=== PATIENT | male | born 1975 | race Caucasian/White ===

== ENCOUNTER 2024-04-14 07:23 | Day surgery (SDC) | payer SELFPAY ==
[2024-04-14] VITALS (9 sets, daily range): BP systolic 107–121; BP diastolic 66–82; PULSE 58–72; RESP 14–18; TEMP 36.2–36.7; O2SAT 94–99; BMI 25.7
--- NOTE | 2024-04-14 07:30 | EKG12_ITS ---
Test Reason : PREOP Blood Pressure : */* mmHG Vent. Rate : 67 BPM Atrial Rate : 67 BPM P-R Int : 144 ms QRS Dur : 92 ms QT Int : 378 ms P-R-T Axes : 24 27 44 degrees QTcB Int : 399 ms Normal sinus rhythm Normal ECG No previous ECGs available Confirmed by HEYDI KATE, MAL ([id number]), society editor MECCA BANKS ([id number]) on 04/16/2024 9:59:20 AM Referred By: Karl Burton Confirmed By: MAL SOLIZ MD
[2024-04-14] MEDS: 0.9% Normal Saline (1000mL) 1,000 ML 15 ML IV (08:00)
--- NOTE | 2024-04-14 08:31 | PCM.PRE.AN2 ---
ASA Classification* ASA Classification ASA Classification: 2 Assessment & Plan Anesthesia* Anesthesia Assessment Anesthesia Assessment: Discussed sedation and/or anesthesia options, risks, benefits, and alternatives with patient/parents/legal guardian/POA. Questions invited. The patient/parents/legal guardian/POA seems to understand and agrees to proceed with anesthesia plan. Reviewed the physical assessment, medical history, allergy history and patient home medications list prior to surgery/procedure/anesthetic and documented any changes. Performed airway and anesthesia risk assessments. 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 When Was Last Pacemaker Check QUESTION #4 FULL TEXT: You/Your Family Experience fever (hyperthermia) with Anesthesia Last Oral Intake Last Oral intake: Last Oral Intake NPO since 18:00 04/14/24 08:00 Meds taken in AM with sips of No 04/14/24 08:00 water? Meds patient instructed to take am of surgery PONV PONV - assistant to the vice president: PONV - assistant to the vice president Female No 04/07/24 11:19 HX of Motion Sickness No 04/07/24 11:19 HX of N/V After Surgery No 04/07/24 11:19 Non-Smoker Yes 04/07/24 11:19 Duration of Surgery greater Yes 04/07/24 11:19 than 60 minutes Number of Risk Factors 2 04/07/24 11:19 PONV Score Moderate Risk 04/07/24 11:19 Height & Weight Height & Weight: Anesthesia: Height & Weight Height 5 ft 9 in 04/14/24 08:00 Weight: 79 kg 04/14/24 08:00 Body Mass Index (BMI) 25.7 04/14/24 08:00 Respiratory Assessment Respiratory Assessment - assistant to the vice president: Respiratory Tract Infection Hx - assistant to the vice president Hx Respiratory Tract Infection No 04/07/24 11:19 STOP Sleep Apnea STOP Sleep Apnea - assistant to the vice president: STOP Sleep Apnea - assistant to the vice president Hx Hypertension No 04/07/24 11:19 Hx Sleep Apnea No 04/07/24 11:19 CPAP BIPAP Do you snore loudly (louder No 04/07/24 11:19 than talking or can be heard Do you often feel tired/ No 04/07/24 11:19 fatigued/ sleepy during daytime? Has anyone observed you stop No 04/07/24 11:19 breathing during sleep? STOP Results Negative 04/07/24 11:19 QUESTION #5 FULL TEXT : Do you snore loudly (louder than talking or can be heard through closed doors)? Tobacco Use History Tobacco Use History - assistant to the vice president: Tobacco Use History - assistant to the vice president Tobacco Use Smoking Status Former smoker 04/07/24 11:19 Hx Tobacco Use No 04/07/24 11:19 Years Smoking Packs Smoked per Day Smoking Cessation Date was Yes - quit smoking within 15 04/07/24 11:19 within the last 15 years years Hx Smoking Cessation Date Hx Smoking Cessation Counseling Hematologic Medial History Hematologic Hx - assistant to the vice president: Hematologic Medical Hx - shot man Hx of Blood Transfusion Yes 04/07/24 11:19 Hx of Transfusion in last 3 No 04/07/24 11:19 Months Date of Last Transfusion (if within last 3 months) Ever experience any problems No 04/07/24 11:19 with transfusion(s)? Specify any problems Hx of Preganancy in last 3 N/A 04/07/24 11:19 Months Nurse Filling Out Transfusion DSCHRIBER 04/07/24 11:19 & Questions: Date: 04/07/24 04/07/24 11:19 Time: 11:21 04/07/24 11:19 Patient unable to answer at this time (ie. confused, unrespo /Reproduction History /Reproductive History - assistant to the vice president: /Reproductive Hx- assistant to the vice president Hx Now No 04/07/24 11:19 Gestational Age (in weeks): EDC: Hx Hx Para Hx Section SAB No 04/07/24 11:19 Active Medications Active Medications: Current Medications Generic Name Dose Route Start Last Admin Trade Name Freq PRN Reason Stop Dose Admin Cefazolin Sodium 2 gm/ N/A 20 mls @ 400 mls/hr 04/14/24 09:40 IV 04/14/24 09:42 PREOP ONE Sodium Chloride 1,000 mls @ 15 mls/hr 04/14/24 07:40 04/14/24 08:00 IV 04/19/24 20:59 15 mls/hr .Q48H ABNER Administration Protocol [facility] Medical History Anxiety Back pain Ulcerative colitis Former smoker Tachycardia Superior labrum jocfbqxk-ts-tufxymdqw (SLAP) tear of left shoulder Left rotator cuff tear Left shoulder pain Home Medications ?Medication ?Instructions ?Recorded ?Last Taken ?Type NK 02/16/24 Unknown History Allergy/AdvReac Type Severity Reaction Status Date / Time No Known Allergies Allergy Verified 04/14/24 08:09 Surgical History Hx of arthroscopic knee surgery History of colonoscopy Social History Smoking Status: Former smoker alcohol intake: never Review of Systems (Anesthesia) ROS Narrative System reviewed and no additional complaints, except as documented.
--- NOTE | 2024-04-14 09:02 | PCM.HP.STD ---
HPI - General HPI Narrative DOMITILA LINN, is a 48 M who presents for left shoulder arthroscopy subacromial decompression rotator cuff repair of the supraspinatus and subscapularis as well as biceps tenodesis. no changes to h and p. shoulder marked. rab, post op instructions and narcotic counselling discussed. ok to proceed, no further questions. MR#: [id number] Acct: [id number] Name: DOMITILA LINN Rep #: [id number] : 1975 Provider: Dr. Karl Burton MD Age/Sex: 48/M Location[place] [facility] [place] Status: Signed Intake Vital Signs 02/16/2408:08 Weight: 176 lb 8 oz Intake Visit Reasons: LEFT SHOULDER Chief Complaint: left shoulder rotator cuff tear Accompanied by: Self Is patient in pain?: No Allergies No Known Allergies Allergy (Unverified 02/16/24 08:08) Medications ?Medication ?Instructions ?Recorded ?Confirmed ?Type NK 02/16/24 02/16/24 History PFSH Medical History (Updated 02/16/24 @ 08:12 by Karl Burton MD) Superior labrum ximdorva-oo-jkeqvfsfw (SLAP) tear of left shoulder Left rotator cuff tear Left shoulder pain Surgical History (Updated 02/16/24 @ 08:11 by Fernanda Guadalupe) History of colonoscopy Social History (Updated 02/16/24 @ 08:10 by Fernanda Guadalupe) Smoking Status: Former smoker alcohol intake: never HPI LEFT SHOULDER Details: This documentation accurately reflects the service provided and the decisions made by me, Dr. Karl Burton MD 02/16/24 0804. Part of today?s visit was documented by [ ], acting as scribe. DOMITILA LINN is a 48 year old M here today for L shoulder pain, rotator cuff tear. 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 anterior shoulder pain. comes and goes. became worse over 2 months ago. lateral pain, worse with lifting and abduction. RHD. [place] - cortisone injection unsure really, but it helped about 6 months. no PT. meds - nothing. Ortho Exam General General: Yes no acute distress Neurologic: Yes alert and Yes oriented x3 Psychologic: Yes reasonable and appropriate Left Shoulder Skin/Wound: Yes CDI, No ecchymosis, No erythema and No swelling Testing: Yes Hawkin's, Yes Neer's, Yes Speed's, No TTP Biceps, Yes TTP AC Joint, Yes AROM-Forward Elevation 0-180, Yes AROM-External Rotation at side 0-60, Yes empty can, Yes Lincoln, No cross arm, No lift off, No scapular winging and Yes belly press normal SHOULDER: normal motor and sens to axillary N, MRU and AIN/PIN. Hand warm well perfused normal radial pulse strength fe 5/5, er 5/5 with pain. Supplemental Info MRI left shoulder no contrast 01/27/2024 Impression 1. Tendon full-thickness tear of distal posterior fibers of the supraspinatus tendon at the footprint superimposed on mild tendinosis. Tiny low-grade intrasubstance tear along the myotendinous junction of infraspinatus. Near full-thickness tear of distal subscapularis tendon with minimal appearing to remain intact. Tear of the anterior superior through posterior superior labrum. I independently reviewed the imaging. Concur with radiologist report. My own opinion is that the MRI is over calling the subscapularis tear Patient refused x-rays despite my insistence that this is important for full workup of the shoulder pain Coding Level of Care Code Off vis,new,level 3 Diagnoses Left shoulder pain M25.512 Left rotator cuff tear M75.102 Superior labrum nstevibz-fd-doarxwodj (SLAP) tear of left shoulder S43.432A Assessment and Plan Assessment and Plan (1) Left shoulder pain: Status: Acute Plan: 48-year-old man with a left shoulder pain subscapularis tear small supraspinatus tear as well as a tear at the superior labrum. Failed cortisone injection, does not want PT or other modalities. Explained the diagnosis prognosis different treatment options available including but not limited to rest ice anti-inflammatories active modifications cortisone injections therapy and surgery. Surgery in the form of left shoulder arthroscopy subacromial decompression rotator cuff repair of the supraspinatus and subscapularis as well as biceps tenodesis. Patient only smokes occasional cigar or otherwise a healthy patient. 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 The patient understands wished to proceed signed the consent form. Also let the patient know there would be a delay due to the national IV fluid shortage. He understands no further questions or concerns. Pros and cons risks and benefits were discussed with the patient including but not limited to infection, pain, stiffness, bleeding, damage to surrounding structures, neurovascular injury, recurrence or retear, failure or wear of hardware or fixation, instability, fracture, deep vein thrombosis and pulmonary embolism, anesthetic risks, , patient dissatisfaction, need for further surgery and other risks. Patient understood and wished to proceed with surgery, and signed the informed consent documentation. (2) Left rotator cuff tear: Status: Acute (3) Superior labrum iakrbrju-vg-lhlfgykpy (SLAP) tear of left shoulder: Status: Acute Orders: Orders Shoulder min 2 Views Today M25.512 - Pain in left shoulder, M75.102 - Unspecified rotator cuff tear or rupture of left shoulder, not specified as traumatic, S43.432A - Superior glenoid labrum lesion of left shoulder, initial encounter [facility] Medical History Anxiety Back pain Ulcerative colitis Former smoker Tachycardia Superior labrum najemhaq-yu-zoxiutxbk (SLAP) tear of left shoulder Left rotator cuff tear Left shoulder pain Home Medications ?Medication ?Instructions ?Recorded ?Last Taken ?Type NK 02/16/24 Unknown History Allergy/AdvReac Type Severity Reaction Status Date / Time No Known Allergies Allergy Verified 04/14/24 08:09 Surgical History Hx of arthroscopic knee surgery History of colonoscopy Social History Smoking Status: Former smoker alcohol intake: never Vital Signs Vital Signs Vital Signs: 04/14/24 08:00 04/14/24 08:00 04/14/24 08:31 Temperature 98.1 F 98.1 F Temperature Source Temporal Pulse Rate 58 L 58 L Respiratory Rate 18 18 Respiratory Pattern Normal Blood Pressure 121/75 H 121/75 H Blood Pressure Mean 90 Blood Pressure Source Monitor Blood Pressure Position Sitting Blood Pressure Location Left Arm Pulse Ox 99 99 Oxygen Delivery Method Room Air Weight Weight: 174 lb 2.643 oz Body Mass Index (BMI) 25.7
[2024-04-14] MEDS: Cefazolin 2 GM in Syringe IV (09:32)
--- NOTE | 2024-04-14 11:37 | EX.PCM.DISCH ---
Discharge Instructions Diet Discharge Diet: No restrictions Activity Ice area for (Minutes): 10 Lifting Restrictions: no lifting, pendulums 4x/day Dressing / Incision Call your doctor if your incision/area has: Continuous Slow Oozing, Sudden Increased Bleeding, Increased Pain/ Swelling, Increased Redness, Foul Smelling Discharge and Swelling at the incision site Call your doctor if you observe: Fever of 101 or Higher, Coldness, Increased Pain and Numbness or Tingling Change Dressing in: leave in place till F/U Remove Dressing in: do not remove dressing Cleanse incision/area with: Do not get Incision Wet Follow Up Care Please Follow Up With: Karl Burton MD When: next week Test Results: Test results from this visit will be discussed in further detail at your follow-up appointment, if applicable. Discharge Plan Admission Attending Provider: Karl Burton Primary Care Provider: Mich Liang Instructions Print Language: Surinamese Discharge Orders/Prescriptions Prescriptions: New oxycodone-acetaminophen [Endocet] 5-325 mg tablet 1 tab PO Q4H MDD 6 PRN (Reason: pain) 5 Days Qty: 30 0RF Referrals / Follow Up: Karl Burton MD [Med Staff - Active Staff] - Disposition Disposition (needs filled in before D/C Order can be placed): Home, Self Care
--- NOTE | 2024-04-14 12:32 | PCM.OPRPT ---
Problems Associated Problem List Diagnoses (1) Superior labrum shrucnug-sg-flnioxlqi (SLAP) tear of left shoulder: (2) Left rotator cuff tear: (3) Left shoulder pain: Procedures Musculoskeletal [id number]: Other Procedure See Report Operative Report (Standard) Operative Information Date of Procedure: 04/14/24 Pre-Operative Diagnosis: Left shoulder rotator cuff tear subscapularis tear and SLAP tear Post-Operative Diagnosis: Same Surgery/Procedure Performed: Left shoulder arthroscopy subacromial decompression rotator cuff repair of supraspinatus and subscapularis as well as biceps tenodesis tune up mechanic: Yes Worm Packer: dajuan Tasks completed by administrative assistant data entry: Retracting Additional event marketing assistant?: No Type of Anesthesia: Block,Regional and General RN Documented Start/Stop Times: Operation Date: 04/14/24 09:40 Case Time Into Pre-Op 04/14/24 08:09 Anesthesia Start 04/14/24 09:32 Into Room 04/14/24 09:32 Out of Pre-Op 04/14/24 09:40 Procedure Start 04/14/24 09:58 Procedure End 04/14/24 11:42 Anesthesia End 04/14/24 11:53 Out of Room 04/14/24 11:53 Into Recovery 04/14/24 11:57 Out of Recovery 04/14/24 12:20 Into Phase II Recovery 04/14/24 12:21 Procedure Start Time: 09:58 Procedure Stop Time: 11:42 Select all DRAINS/GRAFTS/IMPLANTS that apply: Implanted device Implanted device details: arthrex anchors Estimated Blood Loss: 50 Specimen collected: Yes Description of specimen(s) removed: LHB biceps Description of surgery: Patient brought to the operating room theater. Placed supine on the table. 2 g IV Ancef administered prior to the start of the procedure. General anesthesia induced. Patient transferred left side up lateral decubitus beanbag positioner. All bony prominences were padded. Axillary roll used SCDs and legs. Upper extremity prepped and draped in usual sterile fashion with chlorhexidine-based prep solution allowing over 3 minutes drying time prior to draping. 10 pounds of inline traction 45 degrees of abduction was used. Preoperative timeout performed to confirm the site patient the surgery. Began by inserting the arthroscope into the intra-articular portion of the shoulder through a standard posterior arthroscopy portal. Made an accessory anterior portal using inside out spinal needle localization. There is quite a bit of synovitis irritation at the rotator interval as well as at the biceps tendon. I gently debrided this as well as the rotator interval I debrided that identified the coracoid process. No loose bodies. No osteoarthritis cartilage was normal on the glenoid and humeral head. No tears of the infraspinatus or teres minor. There was definitely some fraying and tearing near full-thickness along the footprint of the supraspinatus. There is also high-grade full-thickness tearing at the upper border one third of the subscapularis. I inserted the cannula through the anterior rotator interval. I placed 2 luggage tag Arthrex #2 FiberWire sutures and then inserted these into a 4.75 mm bio composite swivel lock anchor at the footprint of the subscapularis. I also used the power pick instrument to perform multiple small holes trephination's for bleeding bed for healing. There is a type II SLAP tear. There is fraying of the biceps tendon. I elected to perform a intra-articular biceps tenotomy to prepare for a later biceps tenodesis. I then inserted the arthroscope into the subacromial space. There is type II acromion with quite a bit of downsloping of the anterolateral aspect so I flattened this out using a high-speed susan instrument by about 5 mm. As the supraspinatous insertiont there is only few fibers remaining very thin fibers that did not actually involve the rotator cuff cable that were actually attached therefore I released these in preparation for a full-thickness repair the tear measured 1 cm from medial to lateral by a little over 1.5 cm from anterior to posterior. I elected to do a double row repair. I used Arthrex fiber tack RC suture anchors medially I passed these through the good substance of the rotator cuff at the supraspinatus just medial to the rotator cable. I cut at the swedge and removed the stay suture. I prepared the greater tuberosity by flattening this out using a high-speed susan instrument as well as multiple holes and trephination's using the power pick instrument. Arthroscopy pictures taken and saved throughout this case. I then crisscrossed the sutures for a box and X configuration and then attached these at the lateral row using Arthrex 4.75 mm self punching swivel lock anchors. This achieved good compression at the footprint. Repair was stable and solid. I then turned my attention to the biceps tenodesis. I made a 1 inch longitudinal incision centered at the proximal upper medial border of the humerus overlying the long head of the biceps. Carried the dissection down through skin and subcutaneous tissue achieved meticulous hemostasis. Incised the fascia in line with skin incision. Identified the long head of the biceps deliver this through the incision and shorten up the tendon. I then used the locking loop luggage tag configuration suture with the distal end of the suture passing distal to the initial locking loop and then from anterior to posterior passed the suture back through the tendon. I drilled a unicortical hole in the mid aspect of the humerus distal to the pectoralis major insertion. I irrigated any bone dust passed the free end of the suture through the Arthrex biceps button tension type button. I then passed the button into the unicortical hole flipped the button and delivered the tendon to the repair site by pulling on the free end of the suture. Suture was cut short wound thoroughly irrigated. Wounds closed with 2-0 Vicryl suture and 3-0 Monocryl. Skin cleaned with wet dry dressing followed application of Steri-Strips Adaptic 4 x 4 gauze ABD dressing cloth tape and an abduction pillow sling for the upper extremity. Patient woken up from the general anesthetic transferred off the operating table and taken postanesthetic care unit in stable condition. All sponge needle instrument counts were correct no complications plan to the patient discharged home going to day surgery criteria and follow-up in the office early next week. cpt 35675, [id number], [id number] Surgical Findings: SS and subscap tears, slap tear Complications Complications: No Admit VTE Documentation VTE Present on Admission: No VTE Mechan Device Prophylaxis: SCD's VTE Pharm Prophylaxis ordered?: No Reason prophylaxis not ordered: Treatment Not Indicated
--- NOTE | 2024-04-14 12:33 | PCM.POST.ANE ---
Anesthesia: Postop Eval I Current Vital Signs Temperature: 97.2 F Pulse Rate: 58 Blood Pressure: 115/77 Respiratory Rate: 16 Pulse Ox: 95 Assessment Airway patent: Yes Spontaneous unlabored respirations: Yes nausea: No Vomiting: No Anesthesia Complication: No Fluid Hydration Crystalloid volume administer (ml): 500 Total IV fluid infused: 500 Progress Note Anesthesia document: Postop Eval 1 completed: Yes
--- NOTE | 2024-04-14 12:34 | PCM.POSTANE2 ---
Anesthesia Postop Eval I Sum Postop Eval Completion status Anesthesia document: Postop Eval 1 completed: Yes Anesthesia Postop Eval I Summary Anesthesia Postop Eval I Summary: Anesthesia Postop Eval I: Assessment Summary Airway patent Yes 04/14/24 12:34 Spontaneous unlabored Yes 04/14/24 12:34 respirations Mental status nausea No 04/14/24 12:34 Vomiting No 04/14/24 12:34 Anesthesia Postop Eval I: Fluid Summary Crystalloid volume administer 500 04/14/24 12:34 (ml) Colloids volume administered ( ml) Blood Product volume administered (ml) Total IV fluid infused 500 04/14/24 12:34 Anesthesia Postop Eval I: Summary Notes Anesthesia Complication No 04/14/24 12:34 Anesthesia Complication Comment: Post-operative progress note Anesthesia: Postop Eval II Evaluation Mental status: Awake Pain Level: 2 nausea: No Vomiting: No
--- NOTE | 2024-04-14 12:52 | PCM.POST.ANE ---
Anesthesia: Postop Eval I Current Vital Signs Temperature: 97.5 F Pulse Rate: 58 Blood Pressure: 115/77 Respiratory Rate: 16 Pulse Ox: 95 Oxygen Delivery Method: Room Air Assessment Airway patent: Yes Spontaneous unlabored respirations: Yes Mental status: Awake and Calm nausea: No Vomiting: No Anesthesia Complication: No Fluid Hydration Crystalloid volume administer (ml): 1,200 Total IV fluid infused: 1,200 Progress Note Anesthesia document: Postop Eval 1 completed: Yes
== END 2024-04-14 13:23 | disposition home or self-care (01) ==
LOC: SDC 07:26 → AC 07:28
PROVIDERS: PCP Physician Assistant; Referring Provider Orthopaedic Surgery Sports Medicine; Visit Provider Orthopaedic Surgery Sports Medicine
PROC: (CPT 29805; principal; 2024-04-14 09:20)
DX: S43.432A Superior glenoid labrum lesion of left shoulder, initial encounter (principal); M75.102 Unspecified rotator cuff tear or rupture of left shoulder, not specified as traumatic; Z87.891 Personal history of nicotine dependence; X58.XXXA Exposure to other specified factors, initial encounter
CPT/HCPCS: 29827; 29826; 23430; 01630; 93005; C1713; J2405

== ENCOUNTER → 2024-11-11 | Outpatient (CLI) | payer SELFPAY ==
--- NOTE | 2024-11-11 15:13 | RAD_ITS ---
PROCEDURE: HAND MIN 3 VIEWS 11/11/2024 REASON FOR EXAM: HAND TRAUMA TECHNIQUE: Three views of the right hand COMPARISON: None FINDINGS: No fracture or traumatic malalignment. Mild joint space narrowing and osteophyte formation at the 1st metacarpophalangeal joint. Bone mineral density is subjectively normal. Soft tissues are unremarkable. RAD/Hand Min 3 Views IMPRESSION: 1. No fracture. Consider MRI or ultrasound if there is concern for tendon inj ury. 2. 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 Reading Location: [id number]
== END | disposition home or self-care (01) ==
PROVIDERS: PCP Physician Assistant; Referring Provider Surgery Plastic and Reconstructive Surgery; Visit Provider Surgery Plastic and Reconstructive Surgery
DX: S69.90XA Unspecified injury of unspecified wrist, hand and finger(s), initial encounter (principal)
CPT/HCPCS: 73130